=== PATIENT | female | born 1985 | race Caucasian/White ===

== ENCOUNTER 2023-07-08 21:42 | Emergency (ER) | payer OTHER ==
[~2023-07-08] VITALS: Ht 175.3 cm; Wt 140.0 kg
[2023-07-08 21:57] VITALS: TEMP 98.8
[2023-07-08 23:15] VITALS: BP 148/104; PULSE 67; RESP 15; O2SAT 100
[2023-07-08] MEDS ORDERED: IBUP-1986 PO (23:25)
[2023-07-08] MEDS ORDERED: AMOX-117 PO (23:25)
== END 2023-07-08 23:37 | disposition home or self-care (01) ==
LOC: ER 21:43
DX: K02.9 Dental caries, unspecified (principal); Z88.2 Allergy status to sulfonamides
CPT/HCPCS: 99283